=== PATIENT | female | born 2000 | race Hispanic/Latino ===

== ENCOUNTER 2022-07-27 09:00 | Emergency (ER) | payer OTHER ==
[2022-07-27] MEDS ORDERED: Ondansetron PF 4 MG/2 ML Vial ONE (10:13)
[2022-07-27] MEDS ORDERED: Cefepime 2 GM VIAL ONE (10:13)
[2022-07-27] MEDS ORDERED: Ketorolac Tromethamine 30 MG/ML VIAL ONE (10:13)
[2022-07-27 10:41] LABS: #Lymphocytes 1.1 thou/uL (1.20-3.40); #Monocytes 0.6 thou/uL (0.11-0.59); #Neutrophils 5.8 thou/uL (1.40-6.50); %Basophils 0.2 % (0.0-1.0); %Eosinophils 0.1 % (0.0-10.0); %Lymphocytes 14.9 % (28.0-48.0); %Monocytes 7.8 % (0.0-4.0); Mean Corpuscular HGB CONC 32.5 g/dL (32.0-36.0); Mean Corpuscular Hemoglobin 26.4 pg (25.0-35.0); Mean Corpuscular Volume 81.2 fL (78.0-98.0); Mean Platelet Volume 9.7 fL (7.4-10.4); Platelet Count 134 thou/uL (130-400); RBC Distribution Width 12.7 % (11.5-14.5); Red Blood Cell (RBC) Count 4.56 mill/uL (4.00-5.20); White Blood Cell (WBC) Count 7.5 thou/uL (4.8-10.8)
[2022-07-27] MEDS ORDERED: Vancomycin 1.5 GRAM/300 ML BAG 1.5 GM in Premix Bag 1 BAG IVPB SCH (10:45)
[2022-07-27 11:00] LABS: ALT (SGPT) 67 U/L (8-55); AST (SGOT) 73 U/L (5-30); Alkaline Phosphatase 60 U/L (40-100); Anion Gap 14 mmol/L (10-20); BUN (Urea Nitrogen) 5 mg/dL (8.4-21.0); Bilirubin, Total 0.4 mg/dL (0.2-1.2); Calc. Creatinine Clearance 0 mL/min (70-130); Calcium 8.9 mg/dL (7.8-10.44); Carbon Dioxide 25 mmol/L (22-29); Chloride 98 mmol/L (98-107); Estimated GFR 110; Globulin 3.5 g/dL (2.4-3.5); Glucose 121 mg/dL (70-105); Lipase 12 U/L (8-78); Potassium 3.4 mmol/L (3.5-5.1); Protein, Total 7.5 g/dL (6.0-8.3); Sodium 134 mmol/L (136-145)
[2022-07-27 11:22] LABS: BHCG - Serum Negative (NEGATIVE); Pregs Control Background? CLEAR/WHITE (CLR/WHITE); Pregs Control Bar Appear? YES (CONTROL BAR)
[2022-07-27] MEDS ORDERED: Acetaminophen 500 MG TAB ONE (12:50)
[2022-07-27 14:12] LABS: SARS-CoV-2 NAA Rapid Test Not Detected (NotDetected)
[2022-07-27 15:00] LABS: Bilirubin Negative (Negative); Blood, Urine Negative (Negative); Glucose, Urine (Dipstick) Normal (Negative); Ketone, Urine 10 mg/dL (Negative); Leukocyte Negative Leu/uL (Negative); Nitrite Negative (Negative); Protein, Urine (Dipstick) 10 mg/dL (Neg-Trace); Urobilinogen Normal mg/dL (Less than 2); pH, Urine 6.5 (5.0-9.0)
[2022-07-27 15:10] LABS: Clarity Cloudy (Clear)
[2022-07-28 12:21] LABS: Chlamydia by PCR Not Detected (NotDetected); GC by PCR Not Detected (NotDetected)
== END 2022-07-27 15:35 | disposition home or self-care (01) ==
LOC: ERS 09:00
DX: M54.50 Low back pain, unspecified (principal); R50.9 Fever, unspecified; M79.10 Myalgia, unspecified site; Z20.822 Contact with and (suspected) exposure to COVID-19
CPT/HCPCS: 36415; 74176; 76856; 80053; 81003; 83605; 83690; 84443; 84703; 85025; 87040; 87480; 87491; 87510; 87591; 87660; 93005; 93976; 96365; 96366; 96367; 96375; J0692; J1885; J2405; J3370